=== PATIENT | male | born 2000 | race Caucasian/White ===

== ENCOUNTER 2020-10-13 01:40 | Emergency (ER) | payer SELFPAY ==
[2020-10-13] MEDS ORDERED: Ondansetron 4 MG/2 ML SDV IVPUSH ONE (01:57)
[2020-10-13] MEDS ORDERED: Sodium Chloride 0.9% 1,000 ML IV ONE (01:57)
[2020-10-13] MEDS ORDERED: Sodium Chloride 0.9% 1,000 ML ONE (03:04)
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
== END 2020-10-13 04:50 | disposition home or self-care (01) ==
LOC: JD.ED 01:40
DX: E86.0 Dehydration (principal); Z88.0 Allergy status to penicillin
CPT/HCPCS: 36415; 80053; 85007; 85027; 96374; 99284; J2405; J7030